=== PATIENT | female | born 1945 | race African-American/Black ===

== ENCOUNTER 2021-12-07 17:17 | Observation (INO) ==
[2021-12-07 18:15] VITALS: BMI 33.5
[2021-12-07] MEDS: NS 1,000 ML IV 1,000 ML IV SCH (19:12)
[2021-12-07] MEDS: HEPARIN SODIUM IN D5W 25,000 UNITS/500 ML BAG IV PRN (19:13)
[2021-12-07 19:20] LABS: ERYTHROCYTE SEDIMENTATION RATE 33 MM/HOUR (0-20)
[2021-12-07 19:22] LABS: BASOPHILS # (AUTO) 0.1 X10^3/uL (0.0-0.1); EOSINOPHILS # (AUTO) 0.1 x10^3/uL (0.0-0.2); EOSINOPHILS % (AUTO) 1.9 % (0.9-2.9); HEMATOCRIT 37.5 % (36.0-47.0); HEMOGLOBIN 12.7 g/dL (12.0-16.0); LYMPHOCYTES # (AUTO) 1.4 X10^3/uL (1.3-2.9); LYMPHOCYTES % (AUTO) 23.4 % (21.0-51.0); MEAN CORPUSCULAR HEMOGLOBIN 31.3 pg (27.0-34.0); MEAN CORPUSCULAR VOLUME 92.2 fL (80.0-100.0); MEAN PLATELET VOLUME 7.6 fL (7.4-11.0); MONOCYTES # (AUTO) 0.7 x10^3/uL (0.3-0.8); MONOCYTES % (AUTO) 10.6 % (0.0-13.0); NEUTROPHILS # (AUTO) 3.9 x10^3/uL (2.2-4.8); NEUTROPHILS % (AUTO) 63.1 % (42.0-75.0); RED BLOOD COUNT 4.07 X10^6/uL (3.5-5.4); RED CELL DISTRIBUTION WIDTH 14.2 % (11.6-16.5); WHITE BLOOD COUNT 6.1 X10^3/uL (3.6-10.0)
[2021-12-07 19:28] LABS: ALANINE AMINOTRANSFERASE 17 Units/L (12-78); ALBUMIN 3.4 g/dL (3.4-5.0); ALKALINE PHOSPHATASE 101 Units/L (46-116); ASPARTATE AMINO TRANSFERASE 16 Units/L (15-37); BLOOD UREA NITROGEN 13 mg/dL (7-18); CALCIUM 9.4 mg/dL (8.5-10.1); CARBON DIOXIDE 29.9 mmol/L (21-32); CHLORIDE 101 mmol/L (98-107); CREATININE 0.99 mg/dL (0.55-1.02); SODIUM 139 mmol/L (136-145); eGFR NON BLACK RACES 58 (>60)
[2021-12-07] MEDS ORDERED: HEPARIN SODIUM INJ 5000 UNITS IVP ONE (19:49)
[2021-12-07] MEDS: ZESTRIL TAB 10 MG PO SCH (21:50)
[2021-12-08 04:21] LABS: BASOPHILS # (AUTO) 0.1 X10^3/uL (0.0-0.1); BASOPHILS % (AUTO) 1.9 % (0.2-1.0); EOSINOPHILS # (AUTO) 0.2 x10^3/uL (0.0-0.2); EOSINOPHILS % (AUTO) 3.9 % (0.9-2.9); HEMATOCRIT 35.7 % (36.0-47.0); HEMOGLOBIN 12.2 g/dL (12.0-16.0); LYMPHOCYTES # (AUTO) 1.6 X10^3/uL (1.3-2.9); LYMPHOCYTES % (AUTO) 31.3 % (21.0-51.0); MEAN CORPUSCULAR HEMOGLOBIN 31.8 pg (27.0-34.0); MEAN CORPUSCULAR HGB CONC 34.2 g/dL (33.0-35.0); MEAN PLATELET VOLUME 7.8 fL (7.4-11.0); MONOCYTES # (AUTO) 0.6 x10^3/uL (0.3-0.8); MONOCYTES % (AUTO) 10.9 % (0.0-13.0); NEUTROPHILS # (AUTO) 2.6 x10^3/uL (2.2-4.8); RED BLOOD COUNT 3.84 X10^6/uL (3.5-5.4); RED CELL DISTRIBUTION WIDTH 14.1 % (11.6-16.5); WHITE BLOOD COUNT 5.1 X10^3/uL (3.6-10.0)
[2021-12-08 04:31] LABS: ALANINE AMINOTRANSFERASE 15 Units/L (12-78); ALKALINE PHOSPHATASE 90 Units/L (46-116); ASPARTATE AMINO TRANSFERASE 12 Units/L (15-37); BLOOD UREA NITROGEN 11 mg/dL (7-18); CALCIUM 8.8 mg/dL (8.5-10.1); CARBON DIOXIDE 29.7 mmol/L (21-32); CHLORIDE 103 mmol/L (98-107); COR CA(FOR HYPOALB) 9.6 mg/dL (8.5-10.1); SODIUM 140 mmol/L (136-145); TOTAL PROTEIN 6.1 g/dL (6.4-8.2); eGFR NON BLACK RACES > 60 (>60)
[2021-12-08] MEDS: NS 1,000 ML IV 1,000 ML IV SCH ×2 (08:32→23:00)
[2021-12-08] MEDS: ZESTRIL TAB 10 MG PO SCH (08:33)
--- NOTE | 2021-12-08 10:24 | DR.H&P ---
H&P - History & Physical for Day of: H&P Date: 12/07/21 - Chief Complaint Chief Complaint: RIGHT LEG SWELLING AND PAIN, SHORTNESS OF BREATH, LEFT ARM PAIN - History of Present Illness History of Present Illness: HAS BEEN FOLLOWED IN THE OFFICE FOR THE PAST SEVERAL DAYS FOR COMPLAINTS OF LEFT ARM AND SHOULDER PAIN. SHE ADMITS TO LIFTING A HEAVY PACKAGE OF WATER AND HER ARM BEGAN HURTING AFTER THAT. SHE WAS PRESCRIBED VOLTAREN GEL AND TIZANIDINE. SHE RETURNED ON 12/07 WITH PERSISTENT PAIN TO THE LEFT ARM, SHORTNESS OF BREATH, AND RIGHT LEG PAIN AND SWELLING. RIGHT LEG PAIN AND SWELLING STARTED TWO DAYS PRIOR. SHE IS NOTED TO HAVE EDEMA FROM THE ANKLE TO THE THIGH. THERE IS WARMTH TO THE LEG. SHE DESCRIBES PAIN CONSTANT, THROBBING, AND RATES IT A 5/10. SHE WAS SENT FOR AN OUTPATIENT VENOUS DOPPLER, WHICH HREVEALED A DVT TO THE RIGHT LOWER EXTREMITY. SHE WAS THEN SENT FOR AN OUTPATIENT CHEST CTA WHICH REVEALED THE FOLLOWING: Contrast opacification of the pulmonary arteries is adequate to the level of the segmental branches. Small segmental branch defects are seen in the bilateral lower lobes compatible with pulmonary emboli for example axial image 95 in the right lower lobe and axial image 75 in the left lower lobe. Normal appearance of the heart and pericardium. The aorta appears normal in course and caliber. The lungs are clear without effusion, consolidation, or pneumothorax. Airways are patient. The soft tissues and osseous structures appear intact. There are bilateral renal cysts and nonobstructing renal calculi. Incidental note of colonic diverticulosis. DECISION WAS MADE TO ADMIT PATIENT TO THE HOSPITAL INPATIENT STATUS FOR FURTHER EVALUATION AND TREATMENT OF PULMONARY EMBOLI, RIGHT LOWER EXTREMITY DVT, AND SHORTNESS OF BREATH. ON ARRIVAL, VITALS WERE 98.0-91-25-99%RA-184/100. LABS WERE OBTAINED. WBC 6.1, RBC 4.07, HGB 12.7, HCT 37.5, SODIUM 139, POTASSIUM 3.9, CHLORIDE 101, BUN 13, CREATININE 0.99, GLUCOSE 94, AST 16, ALT 17, ALK PHOS 101, TOTAL PROTEIN 7.0, ALBUMIN 3.4, PT 15.7, INR 1.29, PTT 30.4. A HYPERCOAGULABLE PANEL WAS ALSO DRAWN. SHE WAS STARTED ON NORMAL SALINE AT 75 ML/HR, A HEPARIN DRIP, AND HER HOME MEDICATIONS OF LISINOPRIL, TRAMADOL, TIZANIDINE, HYDRALAZINE WERE RESUMED. WE WILL OBTAIN A LEFT UPPER EXTREMITY VENOUS DOPPLER TO RULE OUT DVT. OTHERIWSE, WE PLAN TO FOLLOW UP WITH AM LABS AND CONTINUE TO MONITOR. TIME SPENT ON CLINICAL ASSESSMENT, REVIEWING LABS AND IMAGING, DECISION MAKING, AND DOCUMENTATION GREATER THAN 75 MINUTES. - Past Medical History Past Medical History: Anxiety, Hypertension - Past Surgical History Surgical History: Hysterectomy - Family History Family Medical History: Diabetes Mellitus, Cancer, [place], Hypertension - Social History Does patient currently use any type of tobacco product: No Have you used tobacco products in the last 12 months: No Type of Tobacco Use: None Does any household member use tobacco: No Alcohol Use: None Drug Use: None - Medications Home Medications: Penicillins Allergy (Intermediate, Verified 12/07/21 18:13) RASH CONTINUE taking the following medications acetaminophen-codeine 1 tab PO Q6H PRN 12/08/21 [History] alprazolam 0.5 mg PO DAILY PRN 12/08/21 [History] lisinopril 10 mg PO DAILY 12/08/21 [History] meloxicam 7.5 mg PO BID 12/08/21 [History] New Prescriptions apixaban [Eliquis] 5 mg PO BID #60 tab 12/08/21 [Rx] - Review of Systems Constitutional: Weakness Eyes: No Symptoms Reported ENT: No Symptoms Reported Respiratory: Shortness of Breath Cardiovascular: No Symptoms Reported Gastrointestinal: No Symptoms Reported Genitourinary: No Symptoms Reported Musculoskeletal: See HPI, Shoulder Pain, Arm Pain, Leg Pain Skin: No Symptoms Reported Neurological: Weakness - Physical Exam Vital Signs: Temperature 97.6 F Pulse Rate 85 Respiratory Rate 20 Blood Pressure [Right Arm] 144/72 Blood Pressure 158/74 O2 Sat by Pulse Oximetry 97 Oriented: Normal Eyes: Normal Ear: Normal Nose: Normal Throat: Normal Respiratory: Diminished Throughout Cardiovascular: Normal : Normal Auscultation: Bowel Sounds: Normal Palpation: Normal Tenderness: Normal Skin: Normal Musculoskeletal: Shoulder (LEFT ARM AND SHOULDER PAIN ), Arm (LEFT ARM AND SHOULDER PAIN ), Leg (RIGHT LOWER LEG PAIN AND SWELLING ), Swelling, Tender Psychiatric: Normal Mood Description: Calm Affect: Normal Speech Pattern: Clear - Assessment/Plan (1) Pulmonary embolism Qualifiers: Pulmonary embolism type: multiple subsegmental (without acute cor pulmonale) Qualified Code(s): I26.94 - Multiple subsegmental pulmonary emboli without acute cor pulmonale Status: Acute Plan: ADMIT, NORMAL SALINE AT 75 ML/HR, A HEPARIN DRIP, AND HER HOME MEDICATIONS OF LISINOPRIL, TRAMADOL, TIZANIDINE, HYDRALAZINE WERE RESUMED. (2) Right leg DVT Qualifiers: Affected thrombotic vein of extremity: unspecified vein of extremity Chronicity: acute Qualified Code(s): I82.401 - Acute embolism and thrombosis of unspecified deep veins of right lower extremity Status: Acute (3) Shortness of breath Status: Acute (4) Hypertension Qualifiers: Hypertension type: primary hypertension Qualified Code(s): I10 - Essential (primary) hypertension Status: Chronic Plan: CONTINUE HOME MEDS - Allergies Allergies/Adverse Reactions: Allergies Allergy/AdvReac Type Severity Reaction Status Date / Time Penicillins Allergy Intermediate RASH Verified 12/07/21 18:13
[2021-12-08] MEDS ORDERED: ULTRAM PO PRN (10:25)
[2021-12-08] MEDS ORDERED: TYLENOL #3 TAB (W/CODEINE) PO PRN (10:25)
[2021-12-08] MEDS ORDERED: ZANAFLEX PO PRN (10:25)
[2021-12-08] MEDS ORDERED: XANAX PO PRN (10:30)
--- NOTE | 2021-12-08 10:42 | PCM.PROG ---
Progress Note - Progress Note for Day of Date of Exam: 12/08/21 - Subjective Subjective: WAS ADMITTED INPATIENT STATUS FOR TREATMENT OF MULTIPLE PULMONARY EMBOLI, RIGHT LEG DVT, SHORTNESS OF BREATH, AND HTN. TODAY, SHE IS ALERT AND ORIENTED, LYING IN BED ON MORNING ROUNDS. SHE CONTINUES WITH SWELLING AND MILD PAIN TO THE RLE. SHE ALSO CONTINUES TO REPORT LEFT ARM PAIN. ON EXAMINATION, HEART IS REGULAR IN RATE AND RHYTHM. BILATERAL LUNGS NOTED WITH DIMINISHED LUNG SOUNDS THROUGHOUT. ABDOMEN IS ROUND, SOFT, AND NON-TENDER WITH NORMAL BOWEL SOUNDS NOTED IN ALL QUADRANTS. RLE NOTED WITH NON-PITTING EDEMA. SKIN IS WARM TO TOUCH. LEFT ARM IS NOTED WITH TENDERNESS TO PALPATION. HER VITALS THIS MORNING ARE: 97.6-84-22-98%-136/77. LABS WERE OBTAINED. WBC 5.1, RBC 3.84, HGB 12.2, HCT 35.7, SODIUM 140, POTASSIUM 3.8, CHLORIDE 103, BUN 11, CREATININE 0.90, GLUCOSE 95, AST 12, ALT 15, ALK PHOS 90, TOTAL PROTEIN 6.1, ALBUMIN 3.0. HYPERCOAGULABLE PANEL IS PENDING. SHE IS CURRENTLY RECEIVING NORMAL SALINE AT 75 ML/HR, A HEPARIN DRIP, AND HER HOME MEDICATIONS WERE RESUMED. WE WILL OBTAIN A LUE VENOUS DOPPLER TODAY TO RULE OUT DVT. OTHERWISE, WE WILL CONTINUE WITH CURRENT PLAN OF CARE. WE PLAN TO FOLLOW-UP WITH AM LABS AND CONTINUE TO MONITOR. TIME SPENT ON CLINICAL ASSESSMENT, REVIEWING LABS AND IMAGING, DECISION MAKING, AND DOCUMENTATION GREATER THAN 45 MINUTES. - Past Medical Family Social History Past Med/Fam/Surg Hx: No changes since H&P Allergies: Allergies Penicillins Allergy (Intermediate, Verified 12/07/21 18:13) RASH - Review of Systems ROS: No change since H&P - Vital Signs and I&O's Vital Signs: Temperature 97.6 F Pulse Rate 85 Respiratory Rate 20 Blood Pressure [Right Arm] 144/72 Blood Pressure 158/74 O2 Sat by Pulse Oximetry 97 Intake and Output: Intake & Output 12/05/21 12/06/21 12/07/21 12/08/21 11:59 11:59 11:59 11:59 Intake Total 1410 / 1410 Balance 1410 / 1410 - Physical Exam Oriented: Normal Eyes: Normal Ear: Normal Nose: Normal Throat: Normal Respiratory: Generalized, Diminished Cardiovascular: Normal : Normal Auscultation: Bowel Sounds: Normal Palpation: Normal Tenderness: Normal Skin: Normal Musculoskeletal: Shoulder (LEFT ARM AND SHOULDER PAIN ), Arm (LEFT ARM AND SHOULDER PAIN ), Leg (RIGHT LOWER LEG PAIN AND SWELLING ), Swelling, Tender Psychiatric: Normal Mood Description: Calm Affect: Normal Speech Pattern: Clear - Laboratory and Diagnostics Result Diagrams: 12/08/21 04:02 12/08/21 04:02 Labs: Laboratory WBC 5.1 X10^3/uL (3.6-10.0) 12/08/21 04:02 RBC 3.84 X10^6/uL (3.5-5.4) 12/08/21 04:02 Hgb 12.2 g/dL (12.0-16.0) 12/08/21 04:02 Hct 35.7 % (36.0-47.0) L 12/08/21 04:02 MCV 93.0 fL (80.0-100.0) 12/08/21 04:02 MCH 31.8 pg (27.0-34.0) 12/08/21 04:02 MCHC 34.2 g/dL (33.0-35.0) 12/08/21 04:02 RDW 14.1 % (11.6-16.5) 12/08/21 04:02 Plt Count 244 X10^3/uL (150.0-450.0) 12/08/21 04:02 MPV 7.8 fL (7.4-11.0) 12/08/21 04:02 Neut % (Auto) 52.0 % (42.0-75.0) 12/08/21 04:02 Lymph % (Auto) 31.3 % (21.0-51.0) 12/08/21 04:02 [place] % (Auto) 10.9 % (0.0-13.0) 12/08/21 04:02 Eos % (Auto) 3.9 % (0.9-2.9) H 12/08/21 04:02 Baso % (Auto) 1.9 % (0.2-1.0) H 12/08/21 04:02 Neut # (Auto) 2.6 x10^3/uL (2.2-4.8) 12/08/21 04:02 Lymph # (Auto) 1.6 X10^3/uL (1.3-2.9) 12/08/21 04:02 [place] # (Auto) 0.6 x10^3/uL (0.3-0.8) 12/08/21 04:02 Eos # (Auto) 0.2 x10^3/uL (0.0-0.2) 12/08/21 04:02 Baso # (Auto) 0.1 X10^3/uL (0.0-0.1) 12/08/21 04:02 Absolute Nucleated RBC 0.1 /100WBC 12/08/21 04:02 ESR 33 MM/HOUR (0-20) H 12/07/21 18:53 PT 15.7 SECONDS (11.8-14.3) 12/07/21 18:53 INR Target Range - 12/07/21 18:53 INR 1.29 (0.8-1.3) 12/07/21 18:53 APTT 60.8 SECONDS (22.9-36.5) H 12/08/21 09:48 PTT Comment - 12/08/21 09:48 Sodium 140 mmol/L (136-145) 12/08/21 04:02 Corrected Sodium TNP 12/08/21 04:02 Potassium 3.8 mmol/L (3.5-5.1) 12/08/21 04:02 Chloride 103 mmol/L (98-107) 12/08/21 04:02 Carbon Dioxide 29.7 mmol/L (21-32) 12/08/21 04:02 BUN 11 mg/dL (7-18) 12/08/21 04:02 Creatinine 0.90 mg/dL (0.55-1.02) 12/08/21 04:02 Est GFR (MDRD) Af Amer > 60 (>60) 12/08/21 04:02 Est GFR (MDRD) Non-Af > 60 (>60) 12/08/21 04:02 Glucose 95 mg/dL (65-99) 12/08/21 04:02 Calcium 8.8 mg/dL (8.5-10.1) 12/08/21 04:02 Corrected Calcium 9.6 mg/dL (8.5-10.1) 12/08/21 04:02 Total Bilirubin 0.40 mg/dL (0.2-1.0) 12/08/21 04:02 AST 12 Units/L (15-37) L 12/08/21 04:02 ALT 15 Units/L (12-78) 12/08/21 04:02 Alkaline Phosphatase 90 Units/L (46-116) 12/08/21 04:02 Total Protein 6.1 g/dL (6.4-8.2) L 12/08/21 04:02 Albumin 3.0 g/dL (3.4-5.0) L 12/08/21 04:02 Globulin 3.1 g/dL (2.5-4.5) 12/08/21 04:02 Albumin/Globulin Ratio 1.0 Ratio (1.1-2.1) L 12/08/21 04:02 - Plan (1) Pulmonary embolism Status: Acute Qualifiers: Pulmonary embolism type: multiple subsegmental (without acute cor pulmonale) Qualified Code(s): I26.94 - Multiple subsegmental pulmonary emboli without acute cor pulmonale Plan: NORMAL SALINE AT 75 ML/HR, A HEPARIN DRIP, AND HER HOME MEDICATIONS OF LISINOPRIL, TRAMADOL, TIZANIDINE, HYDRALAZINE WERE RESUMED. OBTAIN LUE VENOUS DOPPLER (2) Right leg DVT Status: Acute Qualifiers: Affected thrombotic vein of extremity: unspecified vein of extremity Chronicity: acute Qualified Code(s): I82.401 - Acute embolism and thrombosis of unspecified deep veins of right lower extremity (3) Shortness of breath Status: Acute (4) Hypertension Status: Chronic Qualifiers: Hypertension type: primary hypertension Qualified Code(s): I10 - Essential (primary) hypertension Plan: CONTINUE HOME MEDS
[2021-12-08] MEDS ORDERED: HEPARIN SODIUM INJ 5000 UNITS IVP ONE (10:44)
[2021-12-08] MEDS ORDERED: HEPARIN SODIUM INJ 5000 UNITS ONE (10:48)
[2021-12-08] MEDS: APRESOLINE TAB 25 MG PO SCH ×3 (10:55→21:05)
[2021-12-08] MEDS ORDERED: MOBIC TAB 15 MG PO SCH (11:00)
--- NOTE | 2021-12-08 12:36 | VAS ---
HISTORY: Extremity pain, swelling, and edemaStudy: Left upper extremity Doppler venous ultrasound.TECHNIQUE: Multiple valdez scale and color flow Doppler images of the deep venous system were obtained of the left upper extremity.FINDINGS:The deep venous system of the left upper extremity evaluated from the level of the internal jugular vein through the [radial and ulnar veins]. Normal color flow and augmentation can be observed. In addition, normal compression is seen throughout the upper extremity deep venous system. No soft tissue hematoma is seen.IMPRESSION:1. Negative examination for DVT.Electronically signed by: DIPTI DOLAN III (Dec 08, 2021 12:35:15)
[2021-12-08] MEDS: HEPARIN SODIUM IN D5W 25,000 UNITS/500 ML BAG IV PRN (17:00)
[2021-12-09 06:36] LABS: EOSINOPHILS # (AUTO) 0.2 x10^3/uL (0.0-0.2); MEAN CORPUSCULAR HEMOGLOBIN 31.5 pg (27.0-34.0); MONOCYTES # (AUTO) 0.5 x10^3/uL (0.3-0.8)
[2021-12-09 06:44] LABS: ALANINE AMINOTRANSFERASE 14 Units/L (12-78); ALBUMIN 2.7 g/dL (3.4-5.0); ALKALINE PHOSPHATASE 83 Units/L (46-116); ASPARTATE AMINO TRANSFERASE 11 Units/L (15-37); BLOOD UREA NITROGEN 7 mg/dL (7-18); CALCIUM 8.7 mg/dL (8.5-10.1); CARBON DIOXIDE 28.6 mmol/L (21-32); CHLORIDE 107 mmol/L (98-107); COR CA(FOR HYPOALB) 9.7 mg/dL (8.5-10.1); CREATININE 0.85 mg/dL (0.55-1.02); SODIUM 141 mmol/L (136-145); TOTAL PROTEIN 5.7 g/dL (6.4-8.2); eGFR NON BLACK RACES > 60 (>60)
[2021-12-09 07:06] LABS: BASOPHILS % (AUTO) 0.6 % (0.2-1.0); EOSINOPHILS % (AUTO) 4.7 % (0.9-2.9); HEMATOCRIT 36.1 % (36.0-47.0); HEMOGLOBIN 12.2 g/dL (12.0-16.0); LYMPHOCYTES # (AUTO) 1.7 X10^3/uL (1.3-2.9); LYMPHOCYTES % (AUTO) 37.1 % (21.0-51.0); MEAN CORPUSCULAR HGB CONC 33.7 g/dL (33.0-35.0); MEAN CORPUSCULAR VOLUME 93.6 fL (80.0-100.0); MEAN PLATELET VOLUME 8.2 fL (7.4-11.0); MONOCYTES % (AUTO) 11.7 % (0.0-13.0); NEUTROPHILS # (AUTO) 2.1 x10^3/uL (2.2-4.8); NEUTROPHILS % (AUTO) 45.9 % (42.0-75.0); RED BLOOD COUNT 3.86 X10^6/uL (3.5-5.4); RED CELL DISTRIBUTION WIDTH 14.5 % (11.6-16.5); WHITE BLOOD COUNT 4.5 X10^3/uL (3.6-10.0)
[2021-12-09] MEDS: APRESOLINE TAB 25 MG PO SCH (07:34)
[2021-12-09] MEDS: ZESTRIL TAB 10 MG PO SCH (08:16)
[2021-12-09] MEDS ORDERED: ELIQUIS PO SCH (11:00)
[2021-12-09 11:06] VITALS: BP 151/67
[2021-12-10] MEDS ORDERED: ZESTRIL TAB 10 MG PO SCH (09:00)
[2021-12-11 06:24] LABS: ANTI-NUCLEAR ANTIBODY TEST None Detected (None Detected); PROTEIN C ACTIVITY 152 % (83-168)
[2021-12-14 10:18] LABS: THROMBIN TIME > 150
[2021-12-14 10:19] LABS: PTT-D HEPARIN NEUT 43; REPTILASE TIME 17.4
[2021-12-15 07:01] LABS: PROTHROMBIN G20210A Negative
== END 2021-12-09 12:15 | disposition home or self-care (01) | DRG 176 ==
LOC: ICU 17:22 → INTOOBSV 17:22
PROVIDERS: ADMIT Internal Medicine; ATTEND Internal Medicine